=== PATIENT | male | born 1950 | race Caucasian/White ===

== ENCOUNTER 2022-01-30 08:02 | Day surgery (SDC) | payer OTHER ==
[~2022-01-30] VITALS: Ht 172.7 cm; Wt 69.0 kg
[~2022-01-30 08:02] MED LIST: ATOR80 PO; FINA5 PO; LISI5 PO; METO25; NICO14TP TOP; NICO7 TOP
[2022-01-30] MEDS ORDERED: ASPIR 8181 M1 PO (08:41)
--- NOTE | 2022-01-30 08:52 | NUR ---
01/30/22 0852 Marlene Vazquez 0801 PLEDGET 0825
== END 2022-01-30 10:00 | disposition home or self-care (01) ==
LOC: ORSCSDS 08:02
PROVIDERS: Ophthalmology
PROC: 08RJ3JZ Replacement of Right Lens with Synthetic Substitute, Percutaneous Approach (ICD-10-PCS; principal; 2022-01-30 09:30)
DX: H25.11 Age-related nuclear cataract, right eye (principal); I25.10 Atherosclerotic heart disease of native coronary artery without angina pectoris; I10 Essential (primary) hypertension; E78.5 Hyperlipidemia, unspecified; I25.2 Old myocardial infarction; K21.9 Gastro-esophageal reflux disease without esophagitis; F17.210 Nicotine dependence, cigarettes, uncomplicated; Z79.82 Long term (current) use of aspirin; Z79.899 Other long term (current) drug therapy
CPT/HCPCS: J2001; J2250; J3010; J3301; J7040; V2632

== ENCOUNTER 2022-02-06 09:04 | Day surgery (SDC) | payer OTHER ==
[~2022-02-06] VITALS: Ht 172.7 cm; Wt 68.4 kg
[~2022-02-06 09:04] MED LIST changes: +ASPIR 8181 M1 PO
--- NOTE | 2022-02-06 09:23 | NUR ---
02/06/22 0923 BRYNN STRONG T:0918 P:0920 PT READY FOR OR, CALL LIGHT IN HAND
== END 2022-02-06 11:00 | disposition home or self-care (01) ==
LOC: ORSCSDS 09:04
PROVIDERS: Ophthalmology
PROC: 08RK3JZ Replacement of Left Lens with Synthetic Substitute, Percutaneous Approach (ICD-10-PCS; principal; 2022-02-06 10:30)
DX: H25.12 Age-related nuclear cataract, left eye (principal); Z96.1 Presence of intraocular lens; I10 Essential (primary) hypertension; I25.2 Old myocardial infarction; I25.10 Atherosclerotic heart disease of native coronary artery without angina pectoris; K21.9 Gastro-esophageal reflux disease without esophagitis; F17.210 Nicotine dependence, cigarettes, uncomplicated; Z79.82 Long term (current) use of aspirin; Z79.899 Other long term (current) drug therapy
CPT/HCPCS: J2001; J2250; J3010; J3301; V2632